=== PATIENT | female | born 1995 | race Two or more races ===

== ENCOUNTER 2024-06-10 14:22 | Emergency (ER) | payer OTHER ==
[~2024-06-10] VITALS: Ht 160 cm; Wt 69.4 kg
[2024-06-10] MEDS ORDERED: LIDOCAINE HCL 1% 10ML VIAL IJ ONE (15:45)
[2024-06-10] MEDS ORDERED: CEFTRIAXONE SODIUM 1,000 MG VIAL IM ONE (15:45)
[2024-06-10] MEDS ORDERED: CEFTRIAXONE SODIUM 1,000 MG VIAL ONE (15:57)
[2024-06-10] MEDS ORDERED: LIDOCAINE HCL 1% 10ML VIAL ONE (15:57)
[2024-06-10] MEDS ORDERED: TETANUS & DIPHTHERIA TOX,ADULT 0.5 ML VIAL IM ONE ×2 (17:00→17:30)
[2024-06-10] MEDS ORDERED: DIPHTH,PERTUSS(ACELL),TET VAC 0.5 ML VIAL IM ONE (17:15)
[2024-06-10] MEDS ORDERED: DIPHTH,PERTUSS(ACELL),TET VAC 0.5 ML VIAL IM STA (17:35)
== END 2024-06-10 17:36 ==
LOC: ER 14:24
DX: S61.411A Laceration without foreign body of right hand, initial encounter (principal); W25.XXXA Contact with sharp glass, initial encounter; Y93.89 Activity, other specified; Y92.89 Other specified places as the place of occurrence of the external cause; Y99.9 Unspecified external cause status